=== PATIENT | male | born 2000 | race Asian ===

== ENCOUNTER 2020-03-04 16:51 | Observation (INO) ==
[2020-03-04] MEDS ORDERED: ONDANSETRON INJ 2 MG/ML 2 ML VIAL IV STA (18:48)
[2020-03-04] MEDS ORDERED: SODIUM CHLORIDE 0.9% 1000ML 2,000 ML IV ONE (18:48)
[2020-03-04] MEDS ORDERED: KETOROLAC TROMETHAMINE 15 MG/ML VIAL IV ONE (18:48)
--- NOTE | 2020-03-04 18:51 | Emergency Department Note ---
Impression & Plan Acute appendicitis, Abdominal pain, Leukocytosis ED Provider Note NAME: RICHARD BUTCHER AGE: 19 SEX: M : 2000 ARRIVES VIA: Walk-In INFORMANT: Patient ED PROVIDER(S): Gregory Sanchez DO CHIEF COMPLAINT: Abdominal pain HPI: Patient is a 19-year-old male who presents the ER for periumbilical abdominal pain. It started earlier this morning. Associate with vomiting. He vomited about 10 times. No diarrhea. Normal bowel movement earlier. No dysuria urgency or frequency. No previous abdominal surgeries. No cough runny nose or loss of taste or smell. He is not taking anything for this. He denies any previous medical or surgical issues. No other exacerbating or remitting factors. ROS: See above HPI for pertinent positives & negatives. A total of 10 systems reviewed and were otherwise negative. PAST MEDICAL HISTORY:Denies PAST SURGICAL HISTORY:Denies FAMILY HISTORY:See Below SOCIAL HISTORY:See Below HOME MEDICATIONS:See Below ALLERGIES:Penicillin VITALS:See Below PHYSICAL EXAMINATION: GENERAL: Sitting up in bed, alert, uncomfortable, slightly ill-appearing EYE EXAM: normal conjunctiva. OROPHARYNX: no exudate, no erythema, lips, buccal mucosa, and tongue normal and mucous membranes are moist NECK: supple, no nuchal rigidity, no adenopathy, non-tender LUNGS: Clear to auscultation. Normal chest wall mechanics HEART: no murmurs, S1 normal and S2 normal ABDOMEN: abdomen soft, tender in the epigastric and right lower quadrant, normo- active bowel sounds, no masses, no rebound or guarding. BACK: Back is symmetrical on inspection and there is no deformity, no midline tenderness, no CVA tenderness. SKIN: no rashes and no bruising UPPER EXTREMITIES: upper extremities are grossly normal. LOWER EXTREMITIES: No pitting edema. NEURO EXAM: Normal sensorium, cranial nerves II-XII grossly intact, normal speech, no gross weakness of arms, no gross weakness of legs. MEDICAL DECISION MAKING: Patient is a 19-year-old male who presents the ER for abdominal pain associated with vomiting. On exam he has right lower quadrant tenderness. IV was established blood work was obtained. Labs show a leukocytosis of 14,000. No significant anemia. BMP with slightly elevated glucose. Bilirubin slightly elevated at 1.4. LFTs was unremarkable. Lipase was normal. UA was negative. CT abdomen pelvis confirms acute appendicitis. Updated patient at bedside. Had his insurance updated in the system. He was agreeable to be evaluated by general surgery. He was given IV fluids, IV Toradol and IV Zofran while here. He did feel significant better with this. Triage Nursing notes reviewed. Prior medical records reviewed Vital Signs: reviewed and remarkable for no significant abnormalities Differential diagnosis: Differential diagnoses includes but is not limited to gastritis, peptic ulcer disease, GERD, gallbladder disease, pancreatitis, small bowel obstruction, acute coronary syndrome, pericarditis, ischemic bowel, irritable bowel disease, irritable bowel syndrome, appendicitis, diverticulitis, malignancy, hernia, urinary tract infection, torsion, perforation, trauma, infectious. ER treatment provided: See below Diagnostics interpreted by me: ECG: none Cardiac Monitoring: An order was placed for continuous cardiac monitoring. The monitor shows a rate of 101 with sinus rhythm. Laboratory studies: As stated above and show below. Imaging studies: CT abdomen pelvis shows acute uncomplicated appendicitis measuring 12 mm Consultation(s): Discussed with Dr. Plaza who evaluated the patient at bedside ED COURSE: Procedures: none Critical Care: None Past Med/Surg History Social History Smoking Status: Current every day smoker Preferred Language: Ethiopian Feels Safe at Home: Yes Allergies Allergies Allergy/AdvReac Type Severity Reaction Status Date / Time Penicillins Allergy Hives Verified 03/04/20 19:19 Home Meds Home Medications Medication Instructions Recorded Confirmed No Known Home Medications 03/04/20 03/04/20 Results & Data (ED) Vital Signs Vital Signs - 24 hr 03/04/20 16:55 03/04/20 19:13 03/04/20 20:00 Temperature 36.5 C Temperature Source Oral Pulse Rate 111 H 79 Pulse Rate [Apical] 65 Pulse Rate from SpO2 Sensor 80 Respiratory Rate 18 22 24 Respiratory Effort / Characteristics Non-Labored Spontaneous Respiratory Depth Normal Blood Pressure 150/88 H 114/75 Blood Pressure [Left Arm] 107/71 Blood Pressure Mean 108 88 Blood Pressure Mean [Left Arm] 83 Blood Pressure Position [Left Arm] Standing Pulse Oximetry 98 99 100 Oxygen Delivery Method Room Air Room Air Sepsis Recent Fever Within 48 Hours No Sepsis New/Unexplained Change in Mental Status No Sepsis Action Taken by Nursing No Action Required 03/04/20 20:26 03/04/20 20:30 03/04/20 21:00 Temperature Temperature Source Pulse Rate 87 85 101 H Pulse Rate [Apical] Pulse Rate from SpO2 Sensor 87 86 101 H Respiratory Rate 24 24 18 Respiratory Effort / Characteristics Respiratory Depth Blood Pressure 114/75 113/75 114/64 Blood Pressure [Left Arm] Blood Pressure Mean 89 86 78 Blood Pressure Mean [Left Arm] Blood Pressure Position [Left Arm] Pulse Oximetry 100 100 99 Oxygen Delivery Method Sepsis Recent Fever Within 48 Hours Sepsis New/Unexplained Change in Mental Status Sepsis Action Taken by Nursing 03/04/20 22:30 Temperature Temperature Source Pulse Rate Pulse Rate [Apical] Pulse Rate from SpO2 Sensor 114 H Respiratory Rate Respiratory Effort / Characteristics Respiratory Depth Blood Pressure 101/71 Blood Pressure [Left Arm] Blood Pressure Mean 83 Blood Pressure Mean [Left Arm] Blood Pressure Position [Left Arm] Pulse Oximetry 99 Oxygen Delivery Method Sepsis Recent Fever Within 48 Hours Sepsis New/Unexplained Change in Mental Status Sepsis Action Taken by Nursing Laboratory Data Result diagrams: 03/04/20 18:50 03/04/20 18:50 Lab Results 03/04/20 03/04/20 03/04/20 Range/Units 18:50 18:50 21:30 WBC 14.71 H (4.8-10.8) K/uL RBC 5.55 (4.7-6.1) M/uL Hgb 16.0 (14.0-18.0) g/dL Hct 48.3 (42-52) % MCV 87.0 (80-100) fL MCH 28.8 (25-34) pg MCHC 33.1 (32-36) g/dL RDW Std Deviation 41.0 (36.4-46.3) fL RDW Coeff of Bruno 12.9 (11.5-14.5) % Plt Count 188 (130-400) K/uL MPV 11.3 H (7.4-10.4) fL Immature Gran % (Auto) 0.1 % Neut % (Auto) 94.3 % Lymph % (Auto) 3.4 % [place] % (Auto) 2.1 % Eos % (Auto) 0.0 % Baso % (Auto) 0.1 % Neut # (Auto) 13.87 H (1.4-6.5) K/uL Lymph # (Auto) 0.50 L (1.2-3.4) K/uL [place] # (Auto) 0.31 (0.11-0.59) K/uL Eos # (Auto) 0.00 (0-0.5) K/uL Baso # (Auto) 0.01 (0-0.2) K/uL Immature Gran # (Auto) 0.02 (0.00-0.02) K/uL Sodium 139 (136-145) mmol/L Potassium 3.7 (3.5-5.1) mmol/L Chloride 104 (98-107) mmol/L Carbon Dioxide 25 (21-32) mmol/L Anion Gap 10.0 (3-11) BUN 9 (7-18) mg/dl Creatinine 0.98 (0.6-1.4) mg/dl Est Cr Clr Drug Dosing 115.6 ml/min Est GFR ( Amer) 128.1 Est GFR (Non-Af Amer) 110.5 BUN/Creatinine Ratio 8.7 L (10-20) Glucose 137 H (70-99) mg/dl Calcium 9.3 (8.5-10.1) mg/dl Total Bilirubin 1.4 H (0.2-1) mg/dl AST 13 L (15-37) U/L ALT 24 (12-78) U/L Alkaline Phosphatase 68 (45-117) U/L Total Protein 8.5 H (6.4-8.2) gm/dl Albumin 4.7 (3.4-5.0) gm/dl Globulin 3.8 (2.5-4.0) gm/dl Albumin/Globulin Ratio 1.2 (0.9-2) Lipase 38 L (73-393) U/L Urine Color Yellow Urine Appearance Clear (Clear) Urine pH 7.0 (4.5-7.5) Ur Specific [place] 1.019 (1.000-1.030) Urine Protein Negative (Negative) Urine Glucose (UA) 2+ H (Negative) Urine Ketones 1+ H (Negative) Urine Blood Negative (Negative) Urine Nitrite Negative (Negative) Urine Bilirubin Negative (Negative) Urine Urobilinogen Negative (Negative) Ur Leukocyte Esterase Negative (Negative) Administered Medications Discontinued Medications Sodium Chloride (Nss 1000ml) 2,000 mls @ 999 mls/hr IV .Q2H1M ONE Stop: 03/04/20 20:48 Last Infusion: 03/04/20 21:15 Dose: 0 mls/hr Documented by: [id number] Admin: 03/04/20 19:10 Dose: 999 mls/hr Documented by: [id number] Ioversol (Ioversol 100ml) 93 ml IV ONCE ONE Stop: 03/04/20 21:45 Last Admin: 03/04/20 21:45 Dose: 93 ml Documented by: [id number] Ketorolac Tromethamine (Ketorolac Tromethamine 15 Mg/Ml Vial) 15 mg IV NOW ONE Stop: 03/04/20 18:49 Last Admin: 03/04/20 19:11 Dose: 15 mg Documented by: [id number] Ondansetron HCl (Ondansetron Inj 2 Mg/Ml 2 Ml Vial) 4 mg IV NOW STA Stop: 03/04/20 18:49 Last Admin: 03/04/20 19:10 Dose: 4 mg Documented by: [id number] Discharge Plan Visit Data Chief Complaint: Abdominal Pain Stated Complaint: VOMITING,ABDOMINAL PAIN,COVID NEG ED Provider: Gregory Sanchez Discharge Problem: Acute appendicitis, Abdominal pain, Leukocytosis Forms Stand Alone Forms: [employer] [facility] [employer] Prescriptions Prescriptions: No Action No Known Home Medications RF: 0 Discharge Problem: Acute appendicitis Qualifiers: Acute appendicitis type: unspecified acute appendicitis type Qualified Code(s): K35.80 - Unspecified acute appendicitis Abdominal pain Qualifiers: Abdominal location: unspecified location Qualified Code(s): R10.9 - Unspecified abdominal pain Leukocytosis Qualifiers: Leukocytosis type: unspecified Qualified Code(s): D72.829 - Elevated white blood cell count, unspecified
[2020-03-04 19:01] LABS: Basophils # (auto) 0.01 K/uL (0-0.2); Basophils % (auto) 0.1 %; Hematocrit (blood only) 48.3 % (42-52); Immature Granulocytes # (auto) 0.02 K/uL (0.00-0.02); Immature Granulocytes % (auto) 0.1 %; Lymphocytes % (auto) 3.4 %; Mean Corpuscular Hemoglobin 28.8 pg (25-34); Mean Corpuscular Hgb Conc 33.1 g/dL (32-36); Mean Platelet Volume 11.3 fL (7.4-10.4); Monocytes # (auto) 0.31 K/uL (0.11-0.59); Monocytes % (auto) 2.1 %; Neutrophils # (auto) 13.87 K/uL (1.4-6.5); Neutrophils % (auto) 94.3 %; Platelet Count 188 K/uL (130-400); RDW Coefficient of Variation 12.9 % (11.5-14.5); Red Blood Count 5.55 M/uL (4.7-6.1); White Blood Count 14.71 K/uL (4.8-10.8)
[2020-03-04 19:18] LABS: Albumin Level 4.7 gm/dl (3.4-5.0); BUN Creatinine Ratio 8.7 (10-20); Calcium 9.3 mg/dl (8.5-10.1); Creatinine Clr Calc Pharmacy 115.6 ml/min; Est GFR (African American) 128.1; Est GFR (Non-African American) 110.5; Potassium 3.7 mmol/L (3.5-5.1)
[2020-03-04 19:21] LABS: Albumin Globulin Ratio 1.2 (0.9-2); Bilirubin,Total 1.4 mg/dl (0.2-1); Globulin 3.8 gm/dl (2.5-4.0); Total Protein 8.5 gm/dl (6.4-8.2)
[2020-03-04] MEDS ORDERED: IOVERSOL 100ml IV ONE (21:44)
[2020-03-04 22:08] LABS: Appearance Urine Clear (Clear); Bilirubin Urine Negative (Negative); Blood Urine Negative (Negative); Color Urine Yellow; Glucose Urine UA 2+ (Negative); Ketones Urine 1+ (Negative); Leukocyte Esterase Urine Negative (Negative); Nitrite Urine Negative (Negative); Protein Urine Negative (Negative); Specific Gravity Urine 1.019 (1.000-1.030); Urobilinogen Urine Negative (Negative)
--- NOTE | 2020-03-04 23:57 | History & Physical Report ---
Date of Service March 04, 2020 Assessment & Plan (1) Acute appendicitis: This patient's history, physical findings, laboratories and CT findings are consistent with appendicitis. I reviewed the images as well as the report. I have recommended a laparoscopic appendectomy. I explained the possible need to convert to an open procedure. I explained the possible complications associated with those procedures. The patient wishes to go ahead with surgery and has signed a consent form. History of Present Illness Chief Complaint: Right lower quadrant pain Primary Care Provider: [facility] This is a 19-year-old male who presents to the emergency room with a complaint of pain in the right lower quadrant that began this morning in the right lower quadrant. The pain is sharp. It increased as the day progressed. It does not radiate into his back or to the left side. He had his nausea and had multiple episodes of vomiting without hematemesis. He is never had pain like this before. The pain is exacerbated by motion. He has no diarrhea or constipation. He denies melena and hematochezia. He has no dysuria or hematuria. Allergies Allergy/AdvReac Type Severity Reaction Status Date / Time Penicillins Allergy Hives Verified 03/04/20 19:19 Home Medications Home Medications Medication Instructions Recorded Confirmed Type No Known Home Medications 03/04/20 03/04/20 History Past Med/Surg History Medical History (Updated 03/04/20 @ 23:51 by Javy Plaza MD) No significant past medical history Surgical History (Updated 03/04/20 @ 23:51 by Javy Plaza MD) Other dental procedure status Social History Smoking Status: Current every day smoker Preferred Language: Maltese Feels Safe at Home: Yes Review of Systems Review of Systems: All systems reviewed & are unremarkable except as noted in HPI & below Physical Exam Constitutional: no acute distress Neck: trachea midline Respiratory: normal respiratory effort, lungs clear to auscultation Cardiovascular: Rate/Rhythm: regular rate and regular rhythm Gastrointestinal (Abdomen): Inspection/Auscultation: abdomen normal to inspection; abdomen not distended Percussion/Palpation: + abdomen tender (Right lower quadrant to moderate palpation) and abdomen soft Skin: no rashes, warm and dry Lymphatic: no cervical lymphadenopathy Results & Data Results & Data ([facility]) Vital Signs (Past 12 Hours) Vital Signs Temp Pulse Pulse Resp BP BP Pulse Ox 03/04/20 23:30 16 119/73 100 03/04/20 23:17 16 116/76 98 03/04/20 22:30 101/71 99 03/04/20 21:00 101 H 18 114/64 99 03/04/20 20:30 85 24 113/75 100 03/04/20 20:26 87 24 114/75 100 03/04/20 20:00 79 24 114/75 100 03/04/20 19:13 65 22 107/71 99 03/04/20 16:55 36.5 C 111 H 18 150/88 H 98 Laboratory Results 03/04/20 03/04/20 03/04/20 Range/Units 21:30 18:50 18:50 WBC 14.71 H (4.8-10.8) K/uL RBC 5.55 (4.7-6.1) M/uL Hgb 16.0 (14.0-18.0) g/dL Hct 48.3 (42-52) % MCV 87.0 (80-100) fL MCH 28.8 (25-34) pg MCHC 33.1 (32-36) g/dL RDW Std Deviation 41.0 (36.4-46.3) fL RDW Coeff of Bruno 12.9 (11.5-14.5) % Plt Count 188 (130-400) K/uL MPV 11.3 H (7.4-10.4) fL Immature Gran % (Auto) 0.1 % Neut % (Auto) 94.3 % Lymph % (Auto) 3.4 % [place] % (Auto) 2.1 % Eos % (Auto) 0.0 % Baso % (Auto) 0.1 % Neut # (Auto) 13.87 H (1.4-6.5) K/uL Lymph # (Auto) 0.50 L (1.2-3.4) K/uL [place] # (Auto) 0.31 (0.11-0.59) K/uL Eos # (Auto) 0.00 (0-0.5) K/uL Baso # (Auto) 0.01 (0-0.2) K/uL Immature Gran # (Auto) 0.02 (0.00-0.02) K/uL Sodium 139 (136-145) mmol/L Potassium 3.7 (3.5-5.1) mmol/L Chloride 104 (98-107) mmol/L Carbon Dioxide 25 (21-32) mmol/L Anion Gap 10.0 (3-11) BUN 9 (7-18) mg/dl Creatinine 0.98 (0.6-1.4) mg/dl Est Cr Clr Drug Dosing 115.6 ml/min Est GFR ( Amer) 128.1 Est GFR (Non-Af Amer) 110.5 BUN/Creatinine Ratio 8.7 L (10-20) Glucose 137 H (70-99) mg/dl Calcium 9.3 (8.5-10.1) mg/dl Total Bilirubin 1.4 H (0.2-1) mg/dl AST 13 L (15-37) U/L ALT 24 (12-78) U/L Alkaline Phosphatase 68 (45-117) U/L Total Protein 8.5 H (6.4-8.2) gm/dl Albumin 4.7 (3.4-5.0) gm/dl Globulin 3.8 (2.5-4.0) gm/dl Albumin/Globulin Ratio 1.2 (0.9-2) Lipase 38 L (73-393) U/L Urine Color Yellow Urine Appearance Clear (Clear) Urine pH 7.0 (4.5-7.5) Ur Specific [place] 1.019 (1.000-1.030) Urine Protein Negative (Negative) Urine Glucose (UA) 2+ H (Negative) Urine Ketones 1+ H (Negative) Urine Blood Negative (Negative) Urine Nitrite Negative (Negative) Urine Bilirubin Negative (Negative) Urine Urobilinogen Negative (Negative) Ur Leukocyte Esterase Negative (Negative) Diagnostic Findings CT scan of the abdomen and pelvis with contrast demonstrated a dilated inflamed retrocecal appendix measuring up to 12 mm consistent with uncomplicated acute appendicitis. There is no free air or abscess. There was no evidence of bowel obstruction. (1) Acute appendicitis Acute appendicitis type: unspecified acute appendicitis type Qualified Code(s): K35.80 - Unspecified acute appendicitis
[2020-03-05] MEDS ORDERED: HEPARIN (PORCINE) 1000 UNIT/ML 10 ML (CATH LAB USE ONLY) ONE (00:35)
[2020-03-05] MEDS ORDERED: BUPIVACAINE 0.5 % 5 MG/1 ML MPF 30ML VIAL ONE (00:35)
[2020-03-05] MEDS ORDERED: CEFAZOLIN 250 MG/ML 1 GM VIAL ONE (00:36)
[2020-03-05] MEDS ORDERED: ePHEDrine sulfate 50 MG/ML AMP IV PRN (00:48)
[2020-03-05] MEDS ORDERED: fentaNYL citrate 100 MCG/2 ML VIAL IV PRN (00:48)
[2020-03-05] MEDS ORDERED: ONDANSETRON INJ 2 MG/ML 2 ML VIAL IV PRN ×2 (00:48→03:28)
[2020-03-05] MEDS ORDERED: ATROPINE SULFATE 0.1 MG/ML 10ML SYR IV PRN (00:48)
--- NOTE | 2020-03-05 00:56 | Anesthesiology Consultation ---
Date of Service March 05, 2020 Assessment & Plan (1) Encounter for pre-operative examination: Chart Review Chart Review: Acceptable Risk for Surgery Consults Requested none ASA [id number] Proposed Anesthesia Anesthesia Type: General Risk / Benefits Reviewed With: PT / POA / Parent / Guardian, Accepts Plan and Informed Consent Obtained History Surgery Operation Date: 03/05/20 01:30 Proposed Procedures p Laparoscopic Appendectomy - Javy Plaza MD Height/Weight Height: 5 ft 8 in Weight: 68 kg Allergies Allergy/AdvReac Type Severity Reaction Status Date / Time Penicillins Allergy Hives Verified 03/04/20 19:19 Medications Home Medications Medication Instructions Recorded Confirmed Last Taken No Known Home Medications 03/04/20 03/04/20 Unknown NPO Date Last Intake of Fluids: 03/04/20 Time Last Intake of Fluids: 20:30 Last Intake of Fluids Comment: CT contrast Date Last Intake of Solids: 03/04/20 Time Last Intake of Solids: 11:00 Last Intake of Solids Comment: cereal Past Medical History Medical History No significant past medical history Exercise / Class Metabolic Activity II 4-5 Yardwork/Stairs/Walk up hill Past Surgical History Surgical History Other dental procedure status Past Anesthesia History No Hx of Anesthesia Complications and No Family Hx of Anesthesia Complications History of PONV No Hx of PONV and No Hx of Motion Sickness Social History Smoking Status: Current every day smoker Physical Exam Vital Signs Last Vital Signs Temp 97.7 F 03/04/20 16:55 Pulse 76 03/05/20 00:36 Resp 18 03/05/20 00:36 BP 118/69 03/05/20 00:36 Pulse Ox 100 03/05/20 00:36 ENMT Mouth: no dentition abnormality Thyromental Distance: > or= 3.5 Finger Breadths Mallampati Class: II Neck normal visual inspection Respiratory normal respiratory effort Auscultation: lungs clear to auscultation bilaterally Cardiovascular Rate/Rhythm: regular rate and regular rhythm Testing Laboratory Results 03/04/20 18:50 03/04/20 18:50 Urine Color Yellow 03/04/20 21:30 Urine Appearance Clear (Clear) 03/04/20 21:30 Urine pH 7.0 (4.5-7.5) 03/04/20 21:30 Ur Specific [place] 1.019 (1.000-1.030) 03/04/20 21:30 Urine Protein Negative (Negative) 03/04/20 21:30 Urine Glucose (UA) 2+ (Negative) H 03/04/20 21:30 Urine Ketones 1+ (Negative) H 03/04/20 21:30 Urine Nitrite Negative (Negative) 03/04/20 21:30 Ur Leukocyte Esterase Negative (Negative) 03/04/20 21:30
[2020-03-05] MEDS ORDERED: fentaNYL citrate 100 MCG/2 ML VIAL ONE (00:57)
[2020-03-05] MEDS ORDERED: CLINDAMYCIN PHOS 300 MG/2 ML VIAL ONE (01:23)
[2020-03-05] MEDS ORDERED: PROPOFOL IV EMULSION 10 MG/ML 20 ML VIAL IV ONE (01:27)
[2020-03-05] MEDS ORDERED: LIDOCAINE HCL 2% 2 ML VIAL/AMP(20MG/ML) INFIL ONE (01:27)
[2020-03-05] MEDS ORDERED: CLINDAMYCIN 600 MG/54 ML BAG IV SCH (01:43)
[2020-03-05] MEDS ORDERED: ROCURONIUM BROMIDE 10 MG/ML 5 ML VIAL IV ONE (01:47)
[2020-03-05] MEDS ORDERED: SUCCINYLCHOLINE CHLORIDE 20 MG/ML 10 ML VIAL IV ONE (01:47)
--- NOTE | 2020-03-05 02:08 | Post Operative Brief Note ---
Immediate Post Op Note v1 Date of Surgery March 05, 2020 Pre & Post Diagnosis Operation Date: 03/05/20 01:30 Pre-Op Diagnosis: Acute appendicitis Post-Op Diagnosis: Acute appendicitis I identified the patient and participated in the time-out.: Yes Procedure Operation Date: 03/05/20 01:30 Actual Procedures p Laparoscopic Appendectomy - Javy Plaza MD Surgeon Javy Plaza MD Instructional Design Consultant None Estimated Blood Loss 5 Findings Consistent with Post-Op Diagnosis Drains Hartman Catheter (Inserted prior to start of procedure and discontinued at end of procedure)
--- NOTE | 2020-03-05 02:26 | Anesthesiology Progress Note ---
Date of Service March 05, 2020 Anesthesia Post Procedure Vital Signs Vital Signs: Temp Pulse Pulse Resp BP BP Pulse Ox 03/05/20 00:36 76 18 118/69 100 03/04/20 23:30 16 119/73 100 03/04/20 23:17 16 116/76 98 03/04/20 22:30 101/71 99 03/04/20 21:00 101 H 18 114/64 99 03/04/20 20:30 85 24 113/75 100 03/04/20 20:26 87 24 114/75 100 03/04/20 20:00 79 24 114/75 100 03/04/20 19:13 65 22 107/71 99 03/04/20 16:55 97.7 F 111 H 18 150/88 H 98 Pain Intensity Abdomen: Pain Intensity: 3 Transfer of Care Handoff Completed per policy Notes Mental Status: alert / awake / arousable and participated in evaluation Patient Amnestic to Procedure: Yes Nausea / Vomiting: adequately controlled Pain: adequately controlled Airway Patency, RR, SpO2: stable & adequate BP & HR: stable & adequate Hydration State: stable & adequate Anesthetic Complications: no major complications apparent and Pt Satisfied with anesthetic care
[2020-03-05] MEDS ORDERED: OXYCODONE/ACETAMINOPHEN 5mg/325mg TAB PO PRN (03:28)
[2020-03-05] MEDS ORDERED: MoRPHine SULFATE 2 MG/ML CARP IV PRN (03:31)
[2020-03-05] MEDS ORDERED: D5W AND 1/2NSS + 20MEQ KCL 20 MEQ/1,000 ML BAG IV SCH (04:00)
--- NOTE | 2020-03-05 04:35 | Operative Report (OR) ---
DATE OF OPERATION: 03/05/2020 PREOPERATIVE DIAGNOSIS: Appendicitis. POSTOPERATIVE DIAGNOSIS: Appendicitis. PROCEDURE: Laparoscopic appendectomy. SURGEON: Javy Plaza MD. FINDINGS: The appendix in its distal four-fifths was dilated, hyperemic and firm. There was no evidence of perforation or abscess. The base of the appendix and the cecum at the base of the appendix were normal. TECHNIQUE: The patient was given a general anesthetic and the area was prepped and draped in the usual sterile fashion. Skin and subcutaneous tissue inferior to the umbilicus was anesthetized with 0.5% Marcaine. Skin incision was made, carried down through the subcutaneous tissue to the fascia which was grasped with 2 Chidi clamps and incised between. The peritoneum was identified, incised, and the introducer was placed bluntly. The abdomen was then insufflated to a pressure of 15 mmHg with carbon dioxide. The lower midline introducer was placed through a small skin incision after the skin was anesthetized with 0.5% Marcaine. It was placed under direct vision. The appendix was easily identified, inferior to the cecum and the left lower quadrant introducer site was chosen. The skin was anesthetized and skin incision was made. The introducer was placed under direct vision. The appendix was elevated and the base of the appendix could be identified. The mesoappendix was away from the base of the appendix using blunt and cautery dissection. On the lateral side, there were some adhesions that were taken down to the lateral abdominal wall which allowed me then to create the opening between the mesoappendix and the base of the appendix. The mesoappendix was divided using the Endo-ISAIAH. That allowed me to further elevate the appendix and confirmed that I was at the base and its junction with the cecum. The appendix was amputated at the junction with the cecum using the Endo-ISAIAH stapler. The appendix was placed into an Endobag and brought out through the left lower quadrant introducer site. That introducer was replaced. Right lower quadrant was irrigated. Irrigation was removed. The 2 staple lines were inspected and there was no bleeding. The right lower quadrant was further irrigated. The irrigation was removed. Any irrigation that entered the pelvis or the right upper quadrant was removed. The gas was allowed to escape and the introducers were removed. Fascia of the umbilical and left lower quadrant introducer sites was closed with interrupted 0 Vicryl and the skin of all the incisions was closed with 4-0 Monocryl in either an interrupted or running subcuticular fashion. Additional local was placed around all of the incisions. The skin was cleansed, dried, benzoin placed. Steri-Strips applied. The estimated blood loss was 5 mL Sponge, needle and instrument counts were correct prior to closure. The patient tolerated the surgical procedure without complication and was transferred to recovery. I attest to the content of the Intraoperative Record and any orders documented therein. Any exception s are noted below.
[2020-03-05 06:28] VITALS: O2SAT 98
--- NOTE | 2020-03-05 07:19 | CT Scan Report ---
CT abd pelvis oral and IV con CLINICAL HISTORY: Right mid abdominal pain COMPARISON STUDY: None. TECHNIQUE: The patient was scanned finding administration of dilute oral contrast, and in a dynamic h elical fashion during intravenous administration of 93 cc of Optiray 320 A dose lowering technique w as utilized adhering to the principles of ALARA. CT DOSE: 283.24 mGy.cm FINDINGS: Lower chest: The heart is normal in size and configuration, without pericardial effusion. The lung ba ses and pleural spaces are clear. Liver: The contrast-enhanced liver is normal in size, contour, and attenuation. There is no intrahepa tic biliary ductal dilatation. The hepatic veins and portal veins are patent. Gallbladder: The gallbladder is not distended. There are no calculi. There is trace very cholecystic fluid. Spleen: Normal in size and attenuation. Pancreas: Unremarkable. Adrenal glands: Unremarkable. Kidneys: There is symmetric renal cortical enhancement. The kidneys are normal in size without hydron ephrosis. Bowel: There are no transition zones to indicate bowel obstruction. There is no evidence of acute div erticulitis. There is a dilated fluid-filled appendix with mild wall thickening and minimal periappen diceal stranding. The appendix measures 1 cm diameter. The findings are indicative of acute appendici tis. There is minor bowel wall thickening involving the terminal ileum which may be a reactive findin g to the acute appendicitis Peritoneum: There is no intraperitoneal free air or abdominal ascites. Vasculature: The abdominal aorta is normal in course and caliber. Adenopathy: None. Pelvic viscera: The bladder, and pelvic viscera are unremarkable. Skeletal structures: No destructive osseous lesions are seen. IMPRESSION: CT findings indicative of acute appendicitis. ACT 112: Negative or not required by law. Electronically signed by: Roberth Wu M.D. 03/05/2020 7:17 AM
[2020-03-05 08:02] VITALS: BP 100/60; TEMP 98.8
[2020-03-05] MEDS ORDERED: ACETAMINOPHEN 325 MG TAB PO PRN (09:18)
[2020-03-05 13:01] VITALS: PULSE 97
--- NOTE | 2020-03-05 13:41 | Discharge Summary ---
Date of Service March 05, 2020 Admission HPI Per Admitting Provider This is a 19-year-old male who presents to the emergency room with a complaint of pain in the right lower quadrant that began this morning in the right lower quadrant. The pain is sharp. It increased as the day progressed. It does not radiate into his back or to the left side. He had his nausea and had multiple episodes of vomiting without hematemesis. He is never had pain like this before. The pain is exacerbated by motion. He has no diarrhea or constipation. He denies melena and hematochezia. He has no dysuria or hematuria. Principal Diagnosis Acute appendicitis Discharge Exam Constitutional WD/WN, vitals as above no acute distress and not ill appearing Respiratory normal respiratory effort; no respiratory distress Skin no rashes, warm and dry Psychiatric A+Ox3, euthymic affect Discharge Data Allergies Allergy/AdvReac Type Severity Reaction Status Date / Time Penicillins Allergy Hives Verified 03/04/20 19:19 Consultations 03/04/20 22:30 ED Decision to Admit Stat Procedures Performed Operation Date: 03/05/20 01:30 Actual Procedures p Laparoscopic Appendectomy - Javy Plaza MD Ordered Studies 03/04/20 18:48 CT abd pelvis oral and IV con Urgent Hospital Course (1) Acute appendicitis: Patient was taken to operating room from emergency department for laparoscopic appendectomy by Dr. Plaza. Patient was found to have acute appendicitis without perforation or abscess. Patient tolerated procedure well and was transferred to recovery room and then to medical/surgical floor for postoperative care. His diet was advanced to regular diet, PO Percocet as needed for pain, activity as tolerated, and IV Fluids. POD # 1 , vitals stable, afebrile, preoperative pain resolved and postoperative pain controlled. Patient was discharged home on POD # 0 in stable condition. Total Time Total Time Spent Total Time Spent (In Minutes): 15 Total Time Includes: Examination of the Patient, Discharge Planning and Medication Reconciliation Discharge Plan Discharge Items Patient Disposition: Home - Self-Care Reason For Visit: APPY Discharge Diagnosis: Acute appendicitis Activity: Per Instructions section Non-emergency contact: Surgeon Call non-emergency contact if: your pain is not controlled, your pain is worsening, your pain is concerning for you, you have a fever, your temperature is above 101, your wound has increased redness, your wound has increased drainage and your wound pain has increased Follow-up/Referrals: [facility] [Primary Care Provider] - Diet: Regular Addtl Attending Provider Instructions: Post-Surgical ~Discharge Instructions Activity Recommendations: - lifting limitation: (10 pounds for 2 weeks), - exercise/sex/sports limit: (nonstrenuous for 2 weeks), - driving or machine use limit: (none for 1 week), - Shower/bathe limit: (may shower beginning tomorrow) Diet: - Resume previous diet SPECIAL CARE INSTRUCTIONS: - May shower in 24 hours. Let water run over area and pat dry. - Leave steri strips on for one week and then remove. - Call the surgeon's office with any questions or concerns - - (ex. temperature higher than 101 degrees F, excessive bleeding or pain). MEDICATIONS: - Resume previous medications unless instructed otherwise by your surgeon. - You may alternate extra strength Tylenol and Ibuprofen as needed for mild pian For example: Alternate Tylenol and Ibuprofen 3 hours from each other. - 650 mg of Tylenol every 6 hours as needed - Ibuprofen 600 mg every 6 hours as needed (take with food) - Percocet 1 every 4 hours, as needed for moderate to severe pain. Take as directed. If you take narcotic pain medication, would advise daily stool softener (such as Colace [id number]) to prevent constipation. FOLLOW UP VISIT: - Please call the office to schedule a two week follow-up appointment. Office number Pending Studies at Discharge: Yes (appendix pathology, will be reviewed at follow-up visit) Stand-Alone Forms: My [facility], Smoking Cessation Medications and DC Order Prescriptions: New oxycodone-acetaminophen [Percocet] 5-325 mg tablet 1 tab PO Q4H PRN (Reason: pain) Qty: 10 RF: 0 No Action No Known Home Medications RF: 0 Discharge Orders: Discharge Order (Routine); Ordered 03/05/20 Ordered By: Fallon Douglas Admission Data Admit Date/Time: 03/05/20 02:08 Attending Provider: Abdirashid Plaza Admit Provider: Javy Plaza Primary Care Provider: [facility] Other Providers: Javy Plaza Other Interventions: Discharge Summary Assessment (RN) Last Done: 03/05/20 12:59
== END 2020-03-05 13:56 | disposition home or self-care (01) ==
LOC: ED 16:51 → 3W 03-05 00:36 → OR 03-05 00:36 → 3N 03-05 03:20
DX: F17.200 Nicotine dependence, unspecified, uncomplicated; K35.80 Unspecified acute appendicitis; Z88.0 Allergy status to penicillin; Z11.59 Encounter for screening for other viral diseases